=== PATIENT | male | born 1960 | race Caucasian/White ===

== ENCOUNTER 2020-08-20 09:40 | Day surgery (SDC) | payer OTHER ==
[2020-08-17 13:59] VITALS: BMI 30.2
[~2020-08-20 09:40] MED LIST: Fluorouracil 100 MG, Enoxaparin Sodium 25 MG, EPINEPHrine 0.3 MG in Ophthalmic Irrigati... IRR SCH; Lidocaine 1% PF 5 ML VIAL ONE; Metoclopramide HCl 10 MG/2 ML VIAL ONE; Ondansetron PF 4 MG/2 ML Vial ONE; PHENYLEPHRINE-NS 100 MCG/ML 10 ML SYRINGE ONE; PROPOFOL 200 MG/20 ML VIAL ONE
[2020-08-20] MEDS ORDERED: Fentanyl 100 MCG/2 ML VIAL ONE (09:48)
[2020-08-20] MEDS ORDERED: Famotidine/PF 20 mg/2ml Vial ONE (09:48)
[2020-08-20] MEDS ORDERED: Midazolam HCl 2 mg/2 ml Vial ONE (09:48)
[2020-08-20] MEDS ORDERED: Phenylephrine 2.5% Ophth Soln 5 ML BOT ONE (10:00)
[2020-08-20] MEDS ORDERED: Cyclopentolate HCl 1% 5 ML BOT ONE (10:01)
[2020-08-20] MEDS ORDERED: hydrALAZINE 20 MG/ML VIAL ONE (13:25)
--- NOTE | 2020-08-20 20:59 | OP ---
DATE OF PROCEDURE: 08/20/2020 PREOPERATIVE DIAGNOSIS: Rhegmatogenous retinal detachment, right eye. POSTOPERATIVE DIAGNOSIS: Rhegmatogenous retinal detachment, right eye. PROCEDURE: Pars plana vitrectomy, scleral buckle, complex retinal detachment repair, right eye. ANESTHESIA: General endotracheal anesthesia. PROCEDURE IN DETAIL: Patient identified in the preoperative holding area. Appropriate informed consent for the planned surgical procedure on the right eye had been obtained. The patient transported to the operative suite where general endotracheal anesthesia was initiated. The patient prepped and draped in usual sterile manner for ophthalmic surgery on the right eye. Retrobulbar block was placed in the right eye. Lid speculum was placed in the right eye. A 360-degree conjunctival peritomy was created by sharp dissection with Minerva scissors. #41 band was encircled around the eye, ligated end-to-end with 3083 supratemporally, 287WG tire was placed on the inferior 4 o'clock hours. Band was fixated in place with 5-0 [place] sutures in the oblique quadrants. A 25-gauge trocars placed in conjunctiva and sclera supratemporally, inferotemporally, supranasally. Infusion line was placed inferotemporally. Light pipe vitreous cutter inserted into the eye. Core vitrectomy was performed. Special attention was placed to the inferior area of retinal detachment. One hole was noted in the lattice directly at the 6 o'clock position. Careful removal of vitreous over this area was performed. Posterior drained retinotomy was created at the most posterior extent of subretinal fluid. Complete air-fluid exchange was performed and is being left for fluid to drain posteriorly. 360 laser was placed using Endolaser delivery device. Sclerotomy suture closed with 7-0 Vicryl suture. 15% propane gas was infused into the eye and then the sclerotomy suture closed with 7-0 Vicryl suture. Conjunctiva was closed with 6-0 plain gut suture. Retrobulbar Kenalog and subconjunctival Ancef were placed and antibiotic ointment was placed. Eye was patched and shielded. The patient was advised to position right or left side down. Call for pain if not relieved by Tylenol. Followup appointment with Dr. Marks. Job ID: [id number]
== END 2020-08-20 14:55 | disposition home or self-care (01) ==
LOC: SDC 09:40
PROVIDERS: ATTEND Ophthalmology Retina Specialist
PROC: 08U03JZ Supplement of Right Eye with Synthetic Substitute, Percutaneous Approach (ICD-10-PCS; principal; 2020-08-20)
PROC: 08T43ZZ Resection of Right Vitreous, Percutaneous Approach (ICD-10-PCS; principal; 2020-08-20)
DX: H33.011 Retinal detachment with single break, right eye (principal); Z79.82 Long term (current) use of aspirin
CPT/HCPCS: 67025; J0171; J0360; J1650; J2250; J2405; J2704; J2765; J3010; J9190; S0028

== ENCOUNTER 2020-10-08 07:29 | Day surgery (SDC) | payer OTHER ==
[2020-10-07 11:33] VITALS: BMI 30.8
[~2020-10-08 07:29] MED LIST changes: +Fentanyl 100 MCG/2 ML VIAL ONE; -Lidocaine 1% PF 5 ML VIAL ONE; -Metoclopramide HCl 10 MG/2 ML VIAL ONE; +Midazolam HCl 2 mg/2 ml Vial ONE; -Ondansetron PF 4 MG/2 ML Vial ONE; -PHENYLEPHRINE-NS 100 MCG/ML 10 ML SYRINGE ONE; -PROPOFOL 200 MG/20 ML VIAL ONE
[2020-10-08] MEDS ORDERED: Cyclopentolate 1% Opth Drop 2 ML BOT ONE (07:44)
[2020-10-08] MEDS ORDERED: Phenylephrine 2.5% Ophth Soln 5 ML BOT ONE (07:44)
[2020-10-08] MEDS ORDERED: PROPOFOL 200 MG/20 ML VIAL ONE (08:48)
[2020-10-08] MEDS ORDERED: ePHEDrine 50 MG/ML VIAL ONE (08:48)
[2020-10-08] MEDS ORDERED: Maxitrol 0.1% Opth Oint 3.5 GM TUBE ONE (08:48)
[2020-10-08] MEDS ORDERED: CEFAZOLIN 1 GM VIAL ONE (08:48)
[2020-10-08] MEDS ORDERED: Lidocaine 4% PF 5 ML AMP ONE (08:48)
[2020-10-08] MEDS ORDERED: Bupivacaine PF 0.75% SDV 10 ML ONE (08:48)
[2020-10-08] MEDS ORDERED: Lidocaine 1% PF 5 ML VIAL ONE ×2 (08:48)
[2020-10-08] MEDS ORDERED: Triamcinolone 40 MG/ML VIAL ONE (08:48)
[2020-10-08] MEDS ORDERED: Ondansetron PF 4 MG/2 ML Vial ONE (08:48)
[2020-10-08] MEDS ORDERED: Metoclopramide HCl 10 MG/2 ML VIAL ONE (08:48)
[2020-10-08] MEDS ORDERED: Famotidine/PF 20 mg/2ml Vial ONE (08:59)
--- NOTE | 2020-10-08 17:05 | OP ---
DATE OF PROCEDURE: 10/08/2020 PREOPERATIVE DIAGNOSIS: Rhegmatogenous retinal detachment, right eye. POSTOPERATIVE DIAGNOSIS: Rhegmatogenous retinal detachment, right eye. PROCEDURES PERFORMED: Pars plana vitrectomy, retinal detachment repair, right eye. ANESTHESIA: General endotracheal anesthesia. DESCRIPTION OF PROCEDURE: The patient was identified in the preoperative holding area. Appropriate informed consent for the planned surgical procedure on the right eye had been obtained. The patient was transported to the operative suite, where appropriate cardiopulmonary monitoring was established. General endotracheal anesthesia was initiated. The patient was prepped and draped in usual sterile manner for ophthalmic surgery on the right eye. Lid speculum was placed in the right eye. A 25-gauge trocar was placed through conjunctiva and sclera supratemporally, inferotemporally, supranasally. Infusion line was placed inferotemporally. Light pipe vitreous cutter was inserted into the eye. Core vitrectomy was performed. Special attention was turned to the peripheral retina. Star fold and superficial fibrosis were discovered inferiorly. These were dissected away from the retina and a complete air-fluid exchange was performed. The retina was noted to flatten well. 360 laser was placed using Endolaser delivery device. Silicone oil was infused into the eye, and sclerotomy was suture closed with 7-0 Vicryl suture and 6-0 plain gut suture. Retrobulbar Kenalog and sequential Ancef were placed. Antibiotic ointment was placed. Eye was patched and shielded. The patient was awakened, taken to postop recovery unit in good condition having suffered no immediate perioperative complications. The patient was instructed to keep patch shield on, position right or left side down. Followup appointment with Dr. Marks. Job ID: [id number]
== END 2020-10-08 12:00 | disposition home or self-care (01) ==
LOC: SDC 07:29
PROVIDERS: ATTEND Ophthalmology Retina Specialist
PROC: 08T43ZZ Resection of Right Vitreous, Percutaneous Approach (ICD-10-PCS; principal; 2020-10-08)
DX: H33.001 Unspecified retinal detachment with retinal break, right eye (principal); Z79.82 Long term (current) use of aspirin; Z79.899 Other long term (current) drug therapy
CPT/HCPCS: C1814; J0171; J0690; J1650; J2250; J2405; J2704; J2765; J3010; J3301; J3490; J9190; S0028

== ENCOUNTER 2021-02-01 09:55 | Outpatient (CLI) | payer SELFPAY ==
[2020-08-18 02:06] LABS: SARS-CoV-2 MS2 Positive; SARS-CoV-2 N Gene Negative; SARS-CoV-2 S Gene Negative; SARS-CoV-2 by NAA Not Detected (NotDetected); SARS-CoV-2 orf1ab Negative
[2020-10-06 03:44] LABS: SARS-CoV-2 PCR by NAA Not Detected (NotDetected)
[2021-02-01 19:43] LABS: SARS-CoV-2 PCR by NAA Not Detected (NotDetected)
== END 2021-02-01 09:56 | disposition home or self-care (01) ==
LOC: LABBT 09:55
PROVIDERS: ATTEND Ophthalmology Retina Specialist
DX: Z01.812 Encounter for preprocedural laboratory examination (principal); H43.391 Other vitreous opacities, right eye; Z20.822 Contact with and (suspected) exposure to COVID-19
CPT/HCPCS: U0003; U0005

== ENCOUNTER 2021-02-04 05:58 | Day surgery (SDC) | payer OTHER ==
[2021-02-04] MEDS ORDERED: Cyclopentolate 1% Opth Drop 2 ML BOT ONE (06:13)
[2021-02-04] MEDS ORDERED: Phenylephrine 2.5% Ophth Soln 5 ML BOT ONE (06:13)
[2021-02-04] MEDS ORDERED: Fluorouracil 100 MG, Enoxaparin Sodium 25 MG, EPINEPHrine 0.3 MG in Ophthalmic Irrigati... IRR SCH (06:15)
[2021-02-04] MEDS ORDERED: Famotidine/PF 20 mg/2ml Vial ONE (06:49)
[2021-02-04] MEDS ORDERED: Fentanyl 100 MCG/2 ML VIAL ONE (06:57)
[2021-02-04] MEDS ORDERED: Midazolam HCl 2 mg/2 ml Vial ONE (06:57)
[2021-02-04] MEDS ORDERED: PROPOFOL 20 ML ONE (06:57)
[2021-02-04] MEDS ORDERED: Lidocaine 1% PF 5 ML VIAL ONE (07:18)
[2021-02-04] MEDS ORDERED: Bupivacaine PF 0.75% SDV 10 ML ONE (07:18)
[2021-02-04] MEDS ORDERED: Maxitrol 0.1% Opth Oint 3.5 GM TUBE ONE (07:18)
[2021-02-04] MEDS ORDERED: Triamcinolone 40 MG/ML VIAL ONE (07:18)
[2021-02-04] MEDS ORDERED: Lidocaine 4% PF 5 ML AMP ONE (07:18)
[2021-02-04] MEDS ORDERED: CEFAZOLIN 1 GM VIAL ONE (07:18)
== END 2021-02-04 08:54 | disposition home or self-care (01) ==
LOC: SDC 05:58
PROVIDERS: ATTEND Ophthalmology Retina Specialist
PROC: 08NE3ZZ Release Right Retina, Percutaneous Approach (ICD-10-PCS; principal; 2021-02-04)
PROC: 08T43ZZ Resection of Right Vitreous, Percutaneous Approach (ICD-10-PCS; principal; 2021-02-04)
DX: H43.311 Vitreous membranes and strands, right eye (principal); Z79.82 Long term (current) use of aspirin; Z79.899 Other long term (current) drug therapy
CPT/HCPCS: J0171; J0690; J1650; J2250; J2704; J3010; J3301; J3490; J9190; S0028

== ENCOUNTER 2021-07-15 09:23 | Day surgery (SDC) | payer OTHER ==
[2021-07-13 14:36] VITALS: BMI 32.1
[~2021-07-15 09:23] MED LIST changes: +EPINEPHrine 0.3 MG in Ophthalmic Irrigation Solution 500 ML IRR SCH; -Fentanyl 100 MCG/2 ML VIAL ONE; -Fluorouracil 100 MG, Enoxaparin Sodium 25 MG, EPINEPHrine 0.3 MG in Ophthalmic Irrigati... IRR SCH; -Midazolam HCl 2 mg/2 ml Vial ONE
[2021-07-15] MEDS ORDERED: Cyclopentolate 1% Opth Drop 2 ML BOT ONE (10:02)
[2021-07-15] MEDS ORDERED: Phenylephrine 2.5% Ophth Soln 5 ML BOT ONE (10:02)
[2021-07-15] MEDS ORDERED: PROPOFOL 20 ML ONE (10:48)
[2021-07-15] MEDS ORDERED: Maxitrol 0.1% Opth Oint 3.5 GM TUBE ONE (11:18)
[2021-07-15] MEDS ORDERED: Lidocaine 1% PF 5 ML VIAL ONE (11:18)
[2021-07-15] MEDS ORDERED: Bupivacaine PF 0.75% SDV 10 ML ONE (11:18)
[2021-07-15] MEDS ORDERED: Triamcinolone 40 MG/ML VIAL ONE (11:18)
[2021-07-15] MEDS ORDERED: Lidocaine 4% PF 5 ML AMP ONE (11:18)
[2021-07-15] MEDS ORDERED: CEFAZOLIN 1 GM VIAL ONE (11:18)
== END 2021-07-15 12:45 | disposition home or self-care (01) ==
LOC: SDC 09:23
PROVIDERS: ATTEND Ophthalmology Retina Specialist
PROC: 08T43ZZ Resection of Right Vitreous, Percutaneous Approach (ICD-10-PCS; principal; 2021-07-15)
PROC: 08Q8XZZ Repair Right Cornea, External Approach (ICD-10-PCS; principal; 2021-07-15)
DX: H43.391 Other vitreous opacities, right eye (principal); H18.421 Band keratopathy, right eye; Z79.82 Long term (current) use of aspirin; Z79.899 Other long term (current) drug therapy
CPT/HCPCS: J0171; J0690; J2704; J3301; J3490

== ENCOUNTER 2025-03-12 09:55 | Outpatient (CLI) | payer MEDICARE, OTHER | END 2025-03-12 09:56 | disposition home or self-care (01) | LOC: SCSMRI 09:55 | PROVIDERS: ATTEND Radiology Radiation Oncology | DX: C79.31 Secondary malignant neoplasm of brain (principal); C80.1 Malignant (primary) neoplasm, unspecified | CPT/HCPCS: 70553; 76376 ==

== ENCOUNTER 2025-04-08 09:31 | Outpatient (CLI) | payer MEDICARE, OTHER ==
[2025-04-08] MEDS ORDERED: Iopamidol 370 76% 100 ML VIAL ONE (09:38)
== END 2025-04-08 09:32 | disposition home or self-care (01) ==
LOC: CT 09:31
PROVIDERS: ATTEND Internal Medicine
DX: C64.2 Malignant neoplasm of left kidney, except renal pelvis (principal); K76.89 Other specified diseases of liver; R91.1 Solitary pulmonary nodule; R18.8 Other ascites; Z90.5 Acquired absence of kidney; Z90.49 Acquired absence of other specified parts of digestive tract
CPT/HCPCS: 71260; 74177; Q9967

== ENCOUNTER 2025-06-05 12:42 | Outpatient (CLI) | payer MEDICARE, OTHER | END 2025-06-05 12:43 | disposition home or self-care (01) | LOC: MRI 12:42 | PROVIDERS: ATTEND Radiology Radiation Oncology | DX: C79.31 Secondary malignant neoplasm of brain (principal); C80.1 Malignant (primary) neoplasm, unspecified | CPT/HCPCS: 70553; 76376 ==

== ENCOUNTER 2025-06-30 11:34 | Outpatient (CLI) | payer MEDICARE, OTHER | END 2025-06-30 11:35 | disposition home or self-care (01) | LOC: BICRAD 11:34 | PROVIDERS: ATTEND Internal Medicine | DX: C64.2 Malignant neoplasm of left kidney, except renal pelvis (principal); K76.89 Other specified diseases of liver | CPT/HCPCS: 71046 ==

== ENCOUNTER 2025-07-24 12:24 | Outpatient (CLI) | payer MEDICARE, OTHER ==
[2025-07-24 12:53] LABS: Estimated GFR - POC 47.0
== END 2025-07-24 12:25 | disposition home or self-care (01) ==
LOC: CT 12:24
PROVIDERS: ATTEND Internal Medicine
DX: C64.2 Malignant neoplasm of left kidney, except renal pelvis (principal); K76.89 Other specified diseases of liver
CPT/HCPCS: 36415; 71260; 74177; 82565